=== PATIENT | female | born 1985 | race Caucasian/White ===

== ENCOUNTER 2017-04-09 11:04 | Emergency (ER) | payer MEDICAID ==
[2017-04-09 11:32] VITALS: BP 119/79
--- NOTE | 2017-04-09 11:42 | UC ---
Throat Pain/Nasal [place] HPI - History of Current Complaint Chief Complaint: UCGeneralIllness Stated Complaint: SORE THROAT HEADACHE SINUS NECK PAIN Hx Last Menstrual Period: 03/19/17 - Allergies/Home Medications Allergies/Adverse Reactions: Allergies Allergy/AdvReac Type Severity Reaction Status Date / Time Cefaclor [From Ceclor] Allergy Intermediate Hives Verified 04/09/17 11:32 PMH/Surg Hx/FS Hx/Imm Hx - Surgical History Surgical History: Yes Surgery Procedure, Year, and Place: C-SECT - Social History Alcohol Use: Rare Substance Use Type: None Smoking Status (MU): Never Smoked Tobacco Review of Systems Constitutional: Negative Skin: Negative Eyes: Negative ENT: Nasal Discharge, Sinus Congestion Respiratory: Negative Cardiovascular: Negative Gastrointestinal: Negative Genitourinary: Negative Motor: Negative Neurovascular: Negative Musculoskeletal: Negative Neurological: Headache Psychological: Negative All Other Systems Reviewed And Are Negative: Yes Physical Exam Triage Information Reviewed: Yes Appearance: Well-Nourished, Ill-Appearing, Pain Distress Vital Signs: Initial Vital Signs Temp 98.7 F 04/09/17 11:25 Pulse 94 04/09/17 11:25 Resp 16 04/09/17 11:25 BP 119/79 04/09/17 11:25 Pulse Ox 99 04/09/17 11:25 Vital Signs Reviewed: Yes Eye Exam: Normal Eyes: Positive: Conjunctiva Clear ENT: Positive: Pharyngeal erythema - PND, Nasal drainage, TM bulging Dental Exam: Normal Neck exam: Normal Respiratory Exam: Normal Cardiovascular Exam: Normal Abdominal Exam: Normal Musculoskeletal Exam: Normal Neurological Exam: Normal Psychological Exam: Normal Skin Exam: Normal Throat Pain/Nasal Course/Dx - Course Course Of Treatment: hx obtained, exam performed, meds reviewed, treated for seasonal allergies - Differential Dx/Diagnosis Differential Diagnosis/HQI/PQRI: Pharyngitis, Sinusitis, URI Provider Diagnoses: seasonal allergiex, Post nasal drip. pharynigitis Discharge - Discharge Plan Condition: Stable Disposition: HOME Prescriptions: predniSONE TAB* [Deltasone TAB*] 40 mg PO DAILY #10 tab Patient Education Materials: Allergies (ED) Additional Instructions: 1. take the medication as prescribed. 2. Increase fluid intake and salt water gargles. 3. ibuprofen and tylneol for pain and fever.
== END 2017-04-09 11:49 | disposition home or self-care (01) ==
LOC: UCCORT 11:04
DX: J30.2 Other seasonal allergic rhinitis (principal); R09.82 Postnasal drip; J02.9 Acute pharyngitis, unspecified
CPT/HCPCS: 99212; G0463